=== PATIENT | male | born 1970 | race African-American/Black ===

== ENCOUNTER 2018-02-04 09:34 | Outpatient (CLI) | payer BC | END 2018-02-04 09:35 | disposition home or self-care (01) | LOC: BICULT 09:34 | PROVIDERS: ATTEND Internal Medicine Gastroenterology | DX: K59.09 Other constipation (principal); R10.9 Unspecified abdominal pain; N28.1 Cyst of kidney, acquired; K76.0 Fatty (change of) liver, not elsewhere classified | CPT/HCPCS: 76700 ==

== ENCOUNTER 2020-06-05 09:32 | Emergency (ER) | payer BC, OTHER ==
[2020-06-06 12:32] LABS: SARS-CoV-2 MS2 Positive; SARS-CoV-2 N Gene Positive; SARS-CoV-2 S Gene Positive; SARS-CoV-2 orf1ab Positive
== END 2020-06-05 10:02 | disposition home or self-care (01) ==
LOC: ERS 09:32
DX: U07.1 COVID-19 (principal); I10 Essential (primary) hypertension; Z79.899 Other long term (current) drug therapy
CPT/HCPCS: 87635; 99284; U0003

== ENCOUNTER 2020-12-09 12:48 | Outpatient (CLI) | payer BC ==
--- NOTE | 2020-12-09 14:44 | RAD ---
PA AND LATERAL CHEST: Date: 12/09/2020 HISTORY: Dyspnea. FINDINGS: Heart size and mediastinum are within normal limits. Lungs are clear of infiltrates. No bony findings . No significant change since 07/23/2014 study. IMPRESSION: Stable chest. POS: [facility]
== END 2020-12-09 12:49 | disposition home or self-care (01) ==
LOC: BICRAD 12:48
PROVIDERS: ATTEND Internal Medicine Pulmonary Disease
DX: R06.00 Dyspnea, unspecified (principal)
CPT/HCPCS: 71046